=== PATIENT | male | born 1990 | race African-American/Black ===

== ENCOUNTER 2022-10-18 13:02 | Emergency (ER) | payer OTHER, SELFPAY ==
[2022-10-18 13:31] VITALS: BP 122/82; PULSE 63; RESP 16; TEMP 36.8; O2SAT 95; BMI 24.3
--- NOTE | 2022-10-18 13:32 | ED_ITS ---
HPI - General Adult General Chief complaint: Abdominal Pain <Delbert Calvert - Last Filed: 10/18/22 13:33> Stated complaint: Abd pain/Headaches/Addiction issues <Delbert Calvert - Last Filed: 10/18/22 13:33> Time Seen by Provider: 10/18/22 16:36 <Delbert Calvert - Last Filed: 10/18/22 13:33> Source: patient <JIMMY Correa - Last Filed: 10/18/22 20:22> Mode of arrival: ambulatory <JIMMY Correa - Last Filed: 10/18/22 20:22> History of Present Illness HPI narrative: 32-year-old male with no significant past medical history presenting to the ED complaining of intermittent headache and epigastric pain x4 days. Reports taking aspirin without relief. Denies headache being maximal in onset. Denies abdominal pain being worse with eating. Denies vision change/loss, nausea/vomiting, diarrhea, dysuria/hematuria, flank pain, head injury. Denies taking anticoagulation <JIMMY Correa - Last Filed: 10/18/22 20:22> Onset (ago): day(s) <JIMMY Corera - Last Filed: 10/18/22 20:22> Related Data Allergies/adverse reactions: Allergies Allergy/AdvReac Type Severity Reaction Status Date / Time shellfish derived Allergy Itching Verified 10/18/22 13:34 <Delbert Calvert - Last Filed: 10/18/22 13:33> Review of Systems Review of Systems: Constitutional: No Fever, No Chills, No Night Sweats, No Fatigue, No Malaise ENT/Mouth: No Hearing loss, No Ear Pain, No Nasal Congestion, No sore throat, No Rhinorrhea, No Swallowing Difficulty Eyes: No Eye Pain, No Swelling, No Redness, No Foreign Body, No Discharge, No Vision Changes Cardiovascular: No Chest Pain, No SOB, No Edema, No Palpitations Respiratory: No Cough, No Sputum, No Dyspnea Gastrointestinal: No Nausea, No Vomiting, No Diarrhea, No Constipation, No Abdominal pain Genitourinary: No Dysuria, No Urinary Frequency, No Hematuria, No Flank Pain, No Urinary Flow Changes, No Hesitancy Musculoskeletal: No joint pain, No Myalgias, No Joint Swelling Skin: No Skin Lesions, No rash Neuro: No Weakness, No Numbness, No Paresthesias, No Loss of Consciousness, No Dizziness, + Headache <JIMMY Correa - Last Filed: 10/18/22 20:22> Yes all other systems are reviewed and are negative <JIMMY Correa - Last Filed: 10/18/22 20:22> Constitutional: Constitutional: Reports as per HPI <JIMMY Correa - Last Filed: 10/18/22 20:22> Neurologic: Denies Abnormal speech present <JIMMY Correa - Last Filed: 10/18/22 20:22> [facility] Past Medical History Attestation statement: The following information was validated with the patient. <JIMMY Correa - Last Filed: 10/18/22 20:22> Social History Social History: Social History Advance Directives: No Advance Directives Information Provided: Yes <Delbert Calvert - Last Filed: 10/18/22 13:33> Physical Exam ED Vital Signs: Vital Signs - 24 hr 10/18/22 13:31 Temperature 98.3 F Pulse Rate 63 Respiratory Rate 16 Blood Pressure 122/82 Pulse Oximetry 95 Oxygen Delivery Method Room Air BMI result Body Mass Index 24.3 <Delbert Calvert - Last Filed: 10/18/22 13:33> Vital Signs - 24 hr 10/18/22 13:31 Temperature 98.3 F Pulse Rate 63 Respiratory Rate 16 Blood Pressure 122/82 Pulse Oximetry 95 Oxygen Delivery Method Room Air BMI result Body Mass Index 24.3 <JIMMY Correa - Last Filed: 10/18/22 20:22> Vital Signs - 24 hr 10/18/22 13:31 Temperature 98.3 F Pulse Rate 63 Respiratory Rate 16 Blood Pressure 122/82 Pulse Oximetry 95 Oxygen Delivery Method Room Air BMI result Body Mass Index 24.3 <Kehinde Ly NP - Last Filed: 10/18/22 22:02> Const General: cooperative, healthy appearing, comfortable and no acute distress <JIMMY Correa - Last Filed: 10/18/22 20:22> Orientation/consciousness: patient oriented x3 <JIMMY Correa - Last Filed: 10/18/22 20:22> Limitations: no limitations <JIMMY Correa - Last Filed: 10/18/22 20:22> HENMT Head: Yes normal to inspection and Yes atraumatic <Kerrie Mcfadden PA - Last Filed: 10/18/22 20:22> Ears: hearing grossly normal bilaterally, TM's normal bilaterally and mastoids normal <Kerrie Mcfadden PA - Last Filed: 10/18/22 20:22> General nose exam: Normal external nose present <Kerrie Mcfadden PA - Last Filed: 10/18/22 20:22> Face and sinus: Yes normal facial exam <JIMMY Correa - Last Filed: 10/18/22 20:22> Mouth: Normal oral and palatal mucosa present <Kerrie Mcfadden PA - Last Filed: 10/18/22 20:22> Throat: Yes posterior oropharynx normal <JIMMY Correa - Last Filed: 10/18/22 2 0:22> Eyes General: appearance normal, both eyes and all related structures <Kerrie Mcfadden PA - Last Filed: 10/18/22 20:22> Pupils: Equal, round and reactive pupils present <Kerrie Mcfadden PA - Last Filed: 10/18/22 20:22> EOM: EOMs intact bilaterally <Kerrie Mcfadden PA - Last Filed: 10/18/22 20:22> Neck Neck: Yes normal visual inspection, Yes no lymphadenopathy and Yes no meningeal signs <JIMMY Correa - Last Filed: 10/18/22 20:22> Resp Effort & Inspection: normal respiratory effort and no respiratory distress <Kerrie Mcfadden PA - Last Filed: 10/18/22 20:22> Auscultation: clear to auscultation bilaterally <Kerrie Mcfadden PA - Last Filed: 10/18/22 20:22> Cardio Rate: regular rate <JIMMY Correa - Last Filed: 10/18/22 20:22> Heart sounds: S1 normal heart sound present and S2 normal heart sound present <Kerrie Mcfadden PA - Last Filed: 10/18/22 20:22> GI Inspection: Yes normal to inspection <Kerrie Mcfadden PA - Last Filed: 10/18/22 20:22> Palpation (GI): Soft to palpation, nontender, no guarding and not rigid <Kerrie Mcfadden PA - Last Filed: 10/18/22 20:22> General: Yes no CVA tenderness <Kerrie Mcfadden PA - Last Filed: 10/18/22 20:22> Back/Spine/Pelvis Back: no CVA tenderness <Kerrie Mcfadden PA - Last Filed: 10/18/22 20:22> Skin Rashes: no rashes <Kerrie Mcfadden PA - Last Filed: 10/18/22 20:22> Wounds: no wounds <Kerrie Mcfadden PA - Last Filed: 10/18/22 20:22> Neuro General: patient oriented x3, gait normal, tone normal, moves all extremities, no meningeal signs, no focal motor deficits and CN's II-XI intact bilaterally <Kerrie Mcfadden PA - Last Filed: 10/18/22 20:22> Cranial nerves: Yes Equal, round and reactive pupils present <Kerrie Mcfadden PA - Last Filed: 10/18/22 20:22> Cognition (Neuro): normal cognition <Kerrie Mcfadden PA - Last Filed: 10/18/22 20:22> Speech: No Abnormal speech present <Kerrei Mcfadden PA - Last Filed: 10/18/22 20:22> Gait exam (Neuro): Normal gait present <Kerrie Mcfadden PA - Last Filed: 10/18/22 20:22> Motor exam (neuro): 5/5 motor strength present throughout and Pronator motor function not present <Kerrie Mcfadden PA - Last Filed: 10/18/22 20:22> Extrem General: Yes normal to inspection <Kerrie Mcfadden PA - Last Filed: 10/18/22 20:22> Course Course Course Narrative: -labs reassuring. Total bilirubin mildly elevated to 1.8 -2020--on re-evaluation patient reports symptomatic improvement after medications given in the ED. Patient tearful, upon further conversation reports he uses cocaine and EtOH, denies history known ETOH withdrawal, admits to i ncreasing stressors at home with , 3 children and . Reports increasing depressions/overwhelming feeling. Is interested in detox. Denies SI. >> will obtain CARE team/recovery consult -2020--ED care transferred to [facility] kehinde pending CARE team and recovery eval <JIMMY Correa - Last Filed: 10/18/22 20:22> -labs reassuring. Total bilirubin mildly elevated to 1.8 -2019--on re-evaluation patient reports symptomatic improvement after medications given in the ED. Patient tearful, upon further conversation reports he uses cocaine and EtOH, denies history known ETOH withdrawal, admits to increasing stressors at home with , 3 children and . Reports increasing depressions/overwhelming feeling. Is interested in detox. Denies SI. >> will obtain CARE team/recovery consult -2020--ED care transferred to [facility] kehinde valderrama CARE team and recovery eval Plan is for [facility] tomorrow. <Kehinde Ly NP - Last Filed: 10/18/22 22:02> Reevaluation(s) Reevaluation #1: RME- 32 year old male presents for evaluation of upper abdominal pain and headache for the last 4 days. Plan for labs, viral swab <Delbert Calvert - Last Filed: 10/18/22 13:33> Medications Administered Discontinued Medications Generic Name Dose Route Start Last Admin Trade Name Freq PRN Reason Stop Dose Admin Acetaminophen/Butalbital/Caffeine 1 tab 10/18/22 18:40 10/18/22 18:47 Butalb/Acetamin/Caff 50/325/40 Tablet PO 10/18/22 18:41 1 tab ONCE ONE Administration Al Hydroxide/Mg Hydroxide 30 ml 10/18/22 18:40 10/18/22 18:48 Magnesium Hydrox/Alum Hydrox 30 Ml Oral.Susp PO 10/18/22 18:41 30 ml ONCE ONE Administration Famotidine 20 mg 10/18/22 18:40 10/18/22 18:48 Famotidine 20 Mg Tablet PO 10/18/22 18:41 20 mg ONCE ONE Administration Ketorolac Tromethamine 30 mg 10/18/22 19:43 10/18/22 19:55 Ketorolac Tromethamine 30 Mg/Ml Vial IM 10/18/22 19:44 30 mg ONCE ONE Administration Metoclopramide HCl 10 mg 10/18/22 19:43 10/18/22 19:55 Metoclopramide Hcl 10 Mg Tablet PO 10/18/22 19:44 10 mg ONCE ONE Administration Sumatriptan Succinate 25 mg 10/18/22 19:43 10/18/22 19:55 Sumatriptan Succinate 25 Mg Tablet PO 10/18/22 19:44 25 mg ONCE ONE Administration <Delbert Calvert - Last Filed: 10/18/22 13:33> Medications Administered Discontinued Medications Generic Name Dose Route Start Last Admin Trade Name Freq PRN Reason Stop Dose Admin Acetaminophen/Butalbital/Caffeine 1 tab 10/18/22 18:40 10/18/22 18:47 Butalb/Acetamin/Caff 50/325/40 Tablet PO 10/18/22 18:41 1 tab ONCE ONE Administration Al Hydroxide/Mg Hydroxide 30 ml 10/18/22 18:40 10/18/22 18:48 Magnesium Hydrox/Alum Hydrox 30 Ml Oral.Susp PO 10/18/22 18:41 30 ml ONCE ONE Administration Famotidine 20 mg 10/18/22 18:40 10/18/22 18:48 Famotidine 20 Mg Tablet PO 10/18/22 18:41 20 mg ONCE ONE Administration Ketorolac Tromethamine 30 mg 10/18/22 19:43 10/18/22 19:55 Ketorolac Tromethamine 30 Mg/Ml Vial IM 10/18/22 19:44 30 mg ONCE ONE Administration Metoclopramide HCl 10 mg 10/18/22 19:43 10/18/22 19:55 Metoclopramide Hcl 10 Mg Tablet PO 10/18/22 19:44 10 mg ONCE ONE Administration Sumatriptan Succinate 25 mg 10/18/22 19:43 10/18/22 19:55 Sumatriptan Succinate 25 Mg Tablet PO 10/18/22 19:44 25 mg ONCE ONE Administration <JIMMY Correa - Last Filed: 10/18/22 20:22> Medications Administered Discontinued Medications Generic Name Dose Route Start Last Admin Trade Name Freq PRN Reason Stop Dose Admin Acetaminophen/Butalbital/Caffeine 1 tab 10/18/22 18:40 10/18/22 18:47 Butalb/Acetamin/Caff 50/325/40 Tablet PO 10/18/22 18:41 1 tab ONCE ONE Administration Al Hydroxide/Mg Hydroxide 30 ml 10/18/22 18:40 10/18/22 18:48 Magnesium Hydrox/Alum Hydrox 30 Ml Oral.Susp PO 10/18/22 18:41 30 ml ONCE ONE Administration Famotidine 20 mg 10/18/22 18:40 10/18/22 18:48 Famotidine 20 Mg Tablet PO 10/18/22 18:41 20 mg ONCE ONE Administration Ketorolac Tromethamine 30 mg 10/18/22 19:43 10/18/22 19:55 Ketorolac Tromethamine 30 Mg/Ml Vial IM 10/18/22 19:44 30 mg ONCE ONE Administration Metoclopramide HCl 10 mg 10/18/22 19:43 10/18/22 19:55 Metoclopramide Hcl 10 Mg Tablet PO 10/18/22 19:44 10 mg ONCE ONE Administration Sumatriptan Succinate 25 mg 10/18/22 19:43 10/18/22 19:55 Sumatriptan Succinate 25 Mg Tablet PO 10/18/22 19:44 25 mg ONCE ONE Administration <Kehinde Ly NP - Last Filed: 10/18/22 22:02> Medical Decision Making Medical Decision Making MDM Narrative: 32-year-old male with no significant past medical history presenting to the ED complaining of intermittent headache and epigastric pain x4 days. On exam vital signs stable, NAD, nontoxic appearing, no focal neuro deficits, ab domen soft nontender, no CVAT. Concern for viral illness vs migraine headache vs GERD/gastritis. Low suspicion for cholecystitis/pancreatitis, appendicitis/diverticulitis, ICH/SAH, or meningitis Plan: Labs, COVID/flu/RSV testing, PO Fioricet, Pepcid, Maalox Please refer to course for remaining clinical decision making, interpretation of labs/imaging results, and discussions with consultants and/or family members. <JIMMY Correa - Last Filed: 10/18/22 20:22> Differential Diagnosis Differential Diagnoses: The differential diagnosis associated with the presentation includes <JIMMY Correa - Last Filed: 10/18/22 20:22> As above <JIMMY Correa - Last Filed: 10/18/22 20:22> Admission/Observation Consideration of admission/observation: Escalation of care including admission/observation considered <JIMMY Garcia - Last Filed: 10/18/22 20:22> Lab Data MDM Lab Attestation statement: I reviewed the patient's lab results. <JIMMY Correa - Last Filed: 10/18/22 20:22> Result Diagrams: 10/18/22 13:46 10/18/22 13:46 <Delbert Calvert - Last Filed: 10/18/22 13:33> Labs: Lab Results 10/18/22 10/18/22 10/18/22 Range/Units 13:46 13:46 13:46 WBC 8.6 (4.8-10.8) X10*3/uL RBC 4.68 (4.60-5.80) X10*6/uL Hgb 14.8 (14.0-18.0) g/dl Hct 43.3 (42.0-52.0) % MCV 92.5 (80.0-98.0) fL MCH 31.6 (27.0-33.0) pg MCHC 34.2 (31.0-36.0) g/dl RDW 12.2 (11.0-16.0) % Plt Count 255 (160-400) X10*3/uL MPV 9.8 (9.4-12.4) fL Immature Gran % (Auto) 0.2 (0.0-0.4) % Neut % (Auto) 43.1 L (45-73) % Lymph % (Auto) 44.9 H (20-40) % Hickman % (Auto) 9.9 (2-11) % Eos % (Auto) 1.3 (0-4) % Baso % (Auto) 0.6 (0-2) % Lymph # (Auto) 3.8 (1.2-4.9) X10*3/uL Hickman # (Auto) 0.9 (0.1-1.2) X10*3/uL Eos # (Auto) 0.1 (0.0-0.4) X10*3/uL Baso # (Auto) 0.1 (0.0-0.2) X10*3/uL Abs Immat Gran (auto) 0.02 (0.00-0.03) X10*3/uL Absolute Neuts (auto) 3.7 (2.0-8.3) x10*3/uL Absolute Nucleated RBC 0.000 (0.0-0.012) X10*3/uL Nucleated RBC % (auto) 0.0 (0.0-0.2) /100WBC Sodium 143 (135-145) mmol/L Potassium 4.1 (3.3-5.1) mmol/L Chloride 105 (96-108) mmol/L Carbon Dioxide 29 (22-29) mmol/L Anion Gap 13 (12-20) BUN 11 (9-16) mg/dL Creatinine 1.06 (0.5-1.4) mg/dL Estim Creat Clear Calc 100.9 Estimated GFR > 60 Random Glucose 99 (60-115) mg/dL Calcium 9.3 (8.4-10.2) mg/dL Total Bilirubin 1.8 H (0.0-1.0) mg/dL AST 35 (5-37) U/L ALT 35 (0-40) U/L Alkaline Phosphatase 63 (39-117) U/L Total Protein 7.3 (6.5-8.0) g/dL Albumin 4.5 (3.5-5.0) g/dL Lipase 16 (8-78) U/L Urine Opiates Screen (Not Detect) Urine Fentanyl Screen (Not Detect) Ur Barbiturates Screen (Not Detect) Ur Phencyclidine Scrn (Not Detect) Ur Amphetamines Screen (Not Detect) U Benzodiazepines Scrn (Not Detect) Urine Cocaine Screen (Not Detect) U Marijuana (THC) Screen (Not Detect) Influenza Type A (PCR) NEGATIVE (Negative) Influenza Type B (PCR) NEGATIVE (Negative) RSV RNA Qual (PCR) NEGATIVE (Negative) SARS-CoV-2 RNA (RT-PCR) NEGATIVE (Negative) 10/18/22 Range/Units 20:49 WBC (4.8-10.8) X10*3/uL RBC (4.60-5.80) X10*6/uL Hgb (14.0-18.0) g/dl Hct (42.0-52.0) % MCV (80.0-98.0) fL MCH (27.0-33.0) pg MCHC (31.0-36.0) g/dl RDW (11.0-16.0) % Plt Count (160-400) X10*3/uL MPV (9.4-12.4) fL Immature Gran % (Auto) (0.0-0.4) % Neut % (Auto) (45-73) % Lymph % (Auto) (20-40) % Hickman % (Auto) (2-11) % Eos % (Auto) (0-4) % Baso % (Auto) (0-2) % Lymph # (Auto) (1.2-4.9) X10*3/uL Hickman # (Auto) (0.1-1.2) X10*3/uL Eos # (Auto) (0.0-0.4) X10*3/uL Baso # (Auto) (0.0-0.2) X10*3/uL Abs Immat Gran (auto) (0.00-0.03) X10*3/uL Absolute Neuts (auto) (2.0-8.3) x10*3/uL Absolute Nucleated RBC (0.0-0.012) X10*3/uL Nucleated RBC % (auto) (0.0-0.2) /100WBC Sodium (135-145) mmol/L Potassium (3.3-5.1) mmol/L Chloride (96-108) mmol/L Carbon Dioxide (22-29) mmol/L Anion Gap (12-20) BUN (9-16) mg/dL Creatinine (0.5-1.4) mg/dL Estim Creat Clear Calc Estimated GFR Random Glucose (60-115) mg/dL Calcium (8.4-10.2) mg/dL Total Bilirubin (0.0-1.0) mg/dL AST (5-37) U/L ALT (0-40) U/L Alkaline Phosphatase (39-117) U/L Total Protein (6.5-8.0) g/dL Albumin (3.5-5.0) g/dL Lipase (8-78) U/L Urine Opiates Screen Not Detected (Not Detect) Urine Fentanyl Screen Not Detected (Not Detect) Ur Barbiturates Screen Not Detected (Not Detect) Ur Phencyclidine Scrn Not Detected (Not Detect) Ur Amphetamines Screen Not Detected (Not Detect) U Benzodiazepines Scrn Not Detected (Not Detect) Urine Cocaine Screen POSITIVE H (Not Detect) U Marijuana (THC) Screen POSITIVE H (Not Detect) Influenza Type A (PCR) (Negative) Influenza Type B (PCR) (Negative) RSV RNA Qual (PCR) (Negative) SARS-CoV-2 RNA (RT-PCR) (Negative) <Delbert Calvert - Last Filed: 10/18/22 13:33> Lab Results 10/18/22 10/18/22 10/18/22 Range/Units 13:46 13:46 13:46 WBC 8.6 (4.8-10.8) X10*3/uL RBC 4.68 (4.60-5.80) X10*6/uL Hgb 14.8 (14.0-18.0) g/dl Hct 43.3 (42.0-52.0) % MCV 92.5 (80.0-98.0) fL MCH 31.6 (27.0-33.0) pg MCHC 34.2 (31.0-36.0) g/dl RDW 12.2 (11.0-16.0) % Plt Count 255 (160-400) X10*3/uL MPV 9.8 (9.4-12.4) fL Immature Gran % (Auto) 0.2 (0.0-0.4) % Neut % (Auto) 43.1 L (45-73) % Lymph % (Auto) 44.9 H (20-40) % Hickman % (Auto) 9.9 (2-11) % Eos % (Auto) 1.3 (0-4) % Baso % (Auto) 0.6 (0-2) % Lymph # (Auto) 3.8 (1.2-4.9) X10*3/uL Hickman # (Auto) 0.9 (0.1-1.2) X10*3/uL Eos # (Auto) 0.1 (0.0-0.4) X10*3/uL Baso # (Auto) 0.1 (0.0-0.2) X10*3/uL Abs Immat Gran (auto) 0.02 (0.00-0.03) X10*3/uL Absolute Neuts (auto) 3.7 (2.0-8.3) x10*3/uL Absolute Nucleated RBC 0.000 (0.0-0.012) X10*3/uL Nucleated RBC % (auto) 0.0 (0.0-0.2) /100WBC Sodium 143 (135-145) mmol/L Potassium 4.1 (3.3-5.1) mmol/L Chloride 105 (96-108) mmol/L Carbon Dioxide 29 (22-29) mmol/L Anion Gap 13 (12-20) BUN 11 (9-16) mg/dL Creatinine 1.06 (0.5-1.4) mg/dL Estim Creat Clear Calc 100.9 Estimated GFR > 60 Random Glucose 99 (60-115) mg/dL Calcium 9.3 (8.4-10.2) mg/dL Total Bilirubin 1.8 H (0.0-1.0) mg/dL AST 35 (5-37) U/L ALT 35 (0-40) U/L Alkaline Phosphatase 63 (39-117) U/L Total Protein 7.3 (6.5-8.0) g/dL Albumin 4.5 (3.5-5.0) g/dL Lipase 16 (8-78) U/L Urine Opiates Screen (Not Detect) Urine Fentanyl Screen (Not Detect) Ur Barbiturates Screen (Not Detect) Ur Phencyclidine Scrn (Not Detect) Ur Amphetamines Screen (Not Detect) U Benzodiazepines Scrn (Not Detect) Urine Cocaine Screen (Not Detect) U Marijuana (THC) Screen (Not Detect) Influenza Type A (PCR) NEGATIVE (Negative) Influenza Type B (PCR) NEGATIVE (Negative) RSV RNA Qual (PCR) NEGATIVE (Negative) SARS-CoV-2 RNA (RT-PCR) NEGATIVE (Negative) 10/18/22 Range/Units 20:49 WBC (4.8-10.8) X10*3/uL RBC (4.60-5.80) X10*6/uL Hgb (14.0-18.0) g/dl Hct (42.0-52.0) % MCV (80.0-98.0) fL MCH (27.0-33.0) pg MCHC (31.0-36.0) g/dl RDW (11.0-16.0) % Plt Count (160-400) X10*3/uL MPV (9.4-12.4) fL Immature Gran % (Auto) (0.0-0.4) % Neut % (Auto) (45-73) % Lymph % (Auto) (20-40) % Hickman % (Auto) (2-11) % Eos % (Auto) (0-4) % Baso % (Auto) (0-2) % Lymph # (Auto) (1.2-4.9) X10*3/uL Hickman # (Auto) (0.1-1.2) X10*3/uL Eos # (Auto) (0.0-0.4) X10*3/uL Baso # (Auto) (0.0-0.2) X10*3/uL Abs Immat Gran (auto) (0.00-0.03) X10*3/uL Absolute Neuts (auto) (2.0-8.3) x10*3/uL Absolute Nucleated RBC (0.0-0.012) X10*3/uL Nucleated RBC % (auto) (0.0-0.2) /100WBC Sodium (135-145) mmol/L Potassium (3.3-5.1) mmol/L Chloride (96-108) mmol/L Carbon Dioxide (22-29) mmol/L Anion Gap (12-20) BUN (9-16) mg/dL Creatinine (0.5-1.4) mg/dL Estim Creat Clear Calc Estimated GFR Random Glucose (60-115) mg/dL Calcium (8.4-10.2) mg/dL Total Bilirubin (0.0-1.0) mg/dL AST (5-37) U/L ALT (0-40) U/L Alkaline Phosphatase (39-117) U/L Total Protein (6.5-8.0) g/dL Albumin (3.5-5.0) g/dL Lipase (8-78) U/L Urine Opiates Screen Not Detected (Not Detect) Urine Fentanyl Screen Not Detected (Not Detect) Ur Barbiturates Screen Not Detected (Not Detect) Ur Phencyclidine Scrn Not Detected (Not Detect) Ur Amphetamines Screen Not Detected (Not Detect) U Benzodiazepines Scrn Not Detected (Not Detect) Urine Cocaine Screen POSITIVE H (Not Detect) U Marijuana (THC) Screen POSITIVE H (Not Detect) Influenza Type A (PCR) (Negative) Influenza Type B (PCR) (Negative) RSV RNA Qual (PCR) (Negative) SARS-CoV-2 RNA (RT-PCR) (Negative) <JIMMY Correa - Last Filed: 10/18/22 20:22> Lab Results 10/18/22 10/18/22 10/18/22 Range/Units 13:46 13:46 13:46 WBC 8.6 (4.8-10.8) X10*3/uL RBC 4.68 (4.60-5.80) X10*6/uL Hgb 14.8 (14.0-18.0) g/dl Hct 43.3 (42.0-52.0) % MCV 92.5 (80.0-98.0) fL MCH 31.6 (27.0-33.0) pg MCHC 34.2 (31.0-36.0) g/dl RDW 12.2 (11.0-16.0) % Plt Count 255 (160-400) X10*3/uL MPV 9.8 (9.4-12.4) fL Immature Gran % (Auto) 0.2 (0.0-0.4) % Neut % (Auto) 43.1 L (45-73) % Lymph % (Auto) 44.9 H (20-40) % Hickman % (Auto) 9.9 (2-11) % Eos % (Auto) 1.3 (0-4) % Baso % (Auto) 0.6 (0-2) % Lymph # (Auto) 3.8 (1.2-4.9) X10*3/uL Hickman # (Auto) 0.9 (0.1-1.2) X10*3/uL Eos # (Auto) 0.1 (0.0-0.4) X10*3/uL Baso # (Auto) 0.1 (0.0-0.2) X10*3/uL Abs Immat Gran (auto) 0.02 (0.00-0.03) X10*3/uL Absolute Neuts (auto) 3.7 (2.0-8.3) x10*3/uL Absolute Nucleated RBC 0.000 (0.0-0.012) X10*3/uL Nucleated RBC % (auto) 0.0 (0.0-0.2) /100WBC Sodium 143 (135-145) mmol/L Potassium 4.1 (3.3-5.1) mmol/L Chloride 105 (96-108) mmol/L Carbon Dioxide 29 (22-29) mmol/L Anion Gap 13 (12-20) BUN 11 (9-16) mg/dL Creatinine 1.06 (0.5-1.4) mg/dL Estim Creat Clear Calc 100.9 Estimated GFR > 60 Random Glucose 99 (60-115) mg/dL Calcium 9.3 (8.4-10.2) mg/dL Total Bilirubin 1.8 H (0.0-1.0) mg/dL AST 35 (5-37) U/L ALT 35 (0-40) U/L Alkaline Phosphatase 63 (39-117) U/L Total Protein 7.3 (6.5-8.0) g/dL Albumin 4.5 (3.5-5.0) g/dL Lipase 16 (8-78) U/L Urine Opiates Screen (Not Detect) Urine Fentanyl Screen (Not Detect) Ur Barbiturates Screen (Not Detect) Ur Phencyclidine Scrn (Not Detect) Ur Amphetamines Screen (Not Detect) U Benzodiazepines Scrn (Not Detect) Urine Cocaine Screen (Not Detect) U Marijuana (THC) Screen (Not Detect) Influenza Type A (PCR) NEGATIVE (Negative) Influenza Type B (PCR) NEGATIVE (Negative) RSV RNA Qual (PCR) NEGATIVE (Negative) SARS-CoV-2 RNA (RT-PCR) NEGATIVE (Negative) 10/18/22 Range/Units 20:49 WBC (4.8-10.8) X10*3/uL RBC (4.60-5.80) X10*6/uL Hgb (14.0-18.0) g/dl Hct (42.0-52.0) % MCV (80.0-98.0) fL MCH (27.0-33.0) pg MCHC (31.0-36.0) g/dl RDW (11.0-16.0) % Plt Count (160-400) X10*3/uL MPV (9.4-12.4) fL Immature Gran % (Auto) (0.0-0.4) % Neut % (Auto) (45-73) % Lymph % (Auto) (20-40) % Hickman % (Auto) (2-11) % Eos % (Auto) (0-4) % Baso % (Auto) (0-2) % Lymph # (Auto) (1.2-4.9) X10*3/uL Hickman # (Auto) (0.1-1.2) X10*3/uL Eos # (Auto) (0.0-0.4) X10*3/uL Baso # (Auto) (0.0-0.2) X10*3/uL Abs Immat Gran (auto) (0.00-0.03) X10*3/uL Absolute Neuts (auto) (2.0-8.3) x10*3/uL Absolute Nucleated RBC (0.0-0.012) X10*3/uL Nucleated RBC % (auto) (0.0-0.2) /100WBC Sodium (135-145) mmol/L Potassium (3.3-5.1) mmol/L Chloride (96-108) mmol/L Carbon Dioxide (22-29) mmol/L Anion Gap (12-20) BUN (9-16) mg/dL Creatinine (0.5-1.4) mg/dL Estim Creat Clear Calc Estimated GFR Random Glucose (60-115) mg/dL Calcium (8.4-10.2) mg/dL Total Bilirubin (0.0-1.0) mg/dL AST (5-37) U/L ALT (0-40) U/L Alkaline Phosphatase (39-117) U/L Total Protein (6.5-8.0) g/dL Albumin (3.5-5.0) g/dL Lipase (8-78) U/L Urine Opiates Screen Not Detected (Not Detect) Urine Fentanyl Screen Not Detected (Not Detect) Ur Barbiturates Screen Not Detected (Not Detect) Ur Phencyclidine Scrn Not Detected (Not Detect) Ur Amphetamines Screen Not Detected (Not Detect) U Benzodiazepines Scrn Not Detected (Not Detect) Urine Cocaine Screen POSITIVE H (Not Detect) U Marijuana (THC) Screen POSITIVE H (Not Detect) Influenza Type A (PCR) (Negative) Influenza Type B (PCR) (Negative) RSV RNA Qual (PCR) (Negative) SARS-CoV-2 RNA (RT-PCR) (Negative) <Kehinde Ly NP - Last Filed: 10/18/22 22:02> Radiology Impression Discussion of test interpretation with radiology: I have reviewed the radiologist's reading. <JIMMY Correa - Last Filed: 10/18/22 20:22> External Record Review External record reviewed: Inpatient record, Office record, Outpatient record, Prior outpatient labs, Prior outpatient radiology, Primary care record and Outside ED record <JIMMY Correa - Last Filed: 10/18/22 20:22> Discharge Plan Discharge Clinical Impression: Headache, Abdominal pain, Depressed, Substance abuse <Delbert Calvert - Last Filed: 10/18/22 13:33> Patient Disposition: Home, Self-Care <Delbert Calvert - Last Filed: 10/18/22 13:33> Instructions: Acute Headache (ED), Polysubstance Abuse (ED) <Delbert Calvert - Last Filed: 10/18/22 13:33> Additional Instructions: Please present to detox. Thank you for seeking assistance. Thank you for choosing this emergency department for evaluation. Please follow-up with primary care physician as needed. Return to the emergency department for any new, concerning, or worsening symptoms. <Delbert Calvert - Last Filed: 10/18/22 13:33>
[2022-10-18 13:52] LABS: Basophils Absolute Auto 0.1 X10*3/uL (0.0-0.2); Basophils Percent Auto 0.6 % (0-2); Eosinophils Absolute Auto 0.1 X10*3/uL (0.0-0.4); Eosinophils Percent Auto 1.3 % (0-4); Hematocrit 43.3 % (42.0-52.0); Hemoglobin 14.8 g/dl (14.0-18.0); Imm Gran Abs Auto 0.02 X10*3/uL (0.00-0.03); Imm Gran Pct Auto 0.2 % (0.0-0.4); Lymphocytes Absolute Auto 3.8 X10*3/uL (1.2-4.9); Lymphocytes Percent Auto 44.9 % (20-40); MANUAL DIFF FLAG NO; Mean Corpuscular HGB Conc 34.2 g/dl (31.0-36.0); Mean Corpuscular Hemoglobin 31.6 pg (27.0-33.0); Mean Corpuscular Volume 92.5 fL (80.0-98.0); Mean Platelet Volume 9.8 fL (9.4-12.4); Monocytes Absolute Auto 0.9 X10*3/uL (0.1-1.2); Monocytes Percent Auto 9.9 % (2-11); Neutrophils Absolute Auto 3.7 x10*3/uL (2.0-8.3); Neutrophils Percent Auto 43.1 % (45-73); Platelet Count 255 X10*3/uL (160-400); Red Blood Count 4.68 X10*6/uL (4.60-5.80); Red Cell Distribution Width 12.2 % (11.0-16.0); White Blood Count 8.6 X10*3/uL (4.8-10.8)
[2022-10-18 14:05] LABS: Alanine Aminotransferase 35 U/L (0-40); Albumin Level 4.5 g/dL (3.5-5.0); Alkaline Phosphatase 63 U/L (39-117); Anion Gap 13 (12-20); Aspartate Amino Transferase 35 U/L (5-37); Bilirubin Total 1.8 mg/dL (0.0-1.0); Blood Urea Nitrogen 11 mg/dL (9-16); Calcium 9.3 mg/dL (8.4-10.2); Carbon Dioxide 29 mmol/L (22-29); Chloride 105 mmol/L (96-108); Creatinine Clr Calc Pharmacy 100.9; Estimated Glomerular Filt Rate > 60; Glucose Random 99 mg/dL (60-115); Lipase 16 U/L (8-78); Potassium 4.1 mmol/L (3.3-5.1); Sodium 143 mmol/L (135-145); Total Protein 7.3 g/dL (6.5-8.0)
[2022-10-18 14:32] LABS: Influenza A PCR NEGATIVE (Negative); Influenza B PCR NEGATIVE (Negative); Resp Syncy Virus RNA Qual PCR NEGATIVE (Negative); SARS COV2 PCR INHOUSE NEGATIVE (Negative)
[2022-10-18] MEDS: Butalb/Acetamin/Caff 50/325/40 TABLET 1 TAB PO (18:47)
[2022-10-18] MEDS: Famotidine 20 MG TABLET PO (18:48)
[2022-10-18] MEDS: Magnesium Hydrox/Alum Hydrox 30 ML ORAL.SUSP PO (18:48)
[2022-10-18] MEDS: SUMAtriptan succinate 25 MG TABLET PO (19:55)
[2022-10-18] MEDS: Metoclopramide HCl 10 MG TABLET PO (19:55)
[2022-10-18] MEDS: Ketorolac Tromethamine 30 MG/ML VIAL IM (19:55)
--- NOTE | 2022-10-18 20:59 | PC.NURSE ---
Patient alert and oriented x 3. Patient was crying when I went in medications given. Kerrie went in to see if he wanted to go home he was crying and asked to see care team and recovery. Drug screen done.
--- NOTE | 2022-10-18 21:01 | MHC.RECOVSUP ---
? Reason for consult:Both o? Current location:[facility]? o? Identified substance use concern:? -? Seeking ATS (detox) ? Intervention: o? ATS bed search started/completed/in process o? Community resources provided ? Plan: ? Additional information:RC met with pt, discussed ATS treatment, RC called multiple facilities. No male beds available at this time, [facility] does take walk ins, RC will inform pt and provide him with recovery resources.
[2022-10-18 21:13] LABS: Amphetamine Screen Urine Not Detected (Not Detect); Barbiturates, Urine Not Detected (Not Detect); Benzodiazepines Screen Urine Not Detected (Not Detect); Cannabinoid Screen Urine POSITIVE (Not Detect); Cocaine Screen Urine POSITIVE (Not Detect); Fentanyl, urine Not Detected (Not Detect); Opiate Screen Urine Not Detected (Not Detect); Phencyclidine Screen Urine Not Detected (Not Detect)
== END 2022-10-18 22:12 | disposition home or self-care (01) ==
PROVIDERS: Physician Assistant; Emergency Provider Emergency Medicine
DX: R51.9 Headache, unspecified (principal); R10.9 Unspecified abdominal pain; F32.A Depression, unspecified; F19.10 Other psychoactive substance abuse, uncomplicated; F10.90 Alcohol use, unspecified, uncomplicated; Z20.822 Contact with and (suspected) exposure to COVID-19; Z20.828 Contact with and (suspected) exposure to other viral communicable diseases
CPT/HCPCS: 0241U; 80053; 80307; 83690; 85025; 96372; 99283; 99284; J1885

== ENCOUNTER 2023-08-28 03:27 | Emergency (ER) | payer OTHER, SELFPAY ==
[2023-08-28 03:44] VITALS: BP 129/89; PULSE 105; RESP 18; TEMP 36.7; O2SAT 98; BMI 26.3
[2023-08-28 04:08] LABS: COVID-19 Test Negative (Negative); IDNOW Serial# 58CA691E; IDNOW Serial# 9DB6401D; Influenza A Negative (Negative); Influenza B2 Negative (Negative)
--- NOTE | 2023-08-28 04:38 | ED_ITS ---
HPI - General Adult General Chief complaint: General Medical Stated complaint: ear pain, loss of hearing? Time Seen by Provider: 08/28/23 04:30 Source: patient Mode of arrival: ambulatory Limitations: no limitations History of Present Illness HPI narrative: 33 yo male with prior substance abuse who presents with c/o bilateral ear pain and hearing loss for a week. He also noted a non painful lesion on his penis he just noticed it today. No drainage, no issues urinating. MD complaint: ear pain, penile lesion Onset (ago): week(s) (1) Location: head and genitals Radiation: non-radiation Severity: moderate Quality: aching Pain Consistency: constant Relieving factors: none Exacerbating factors: movement Associated symptoms: denies other symptoms Treatments prior to arrival: none Related Data Previous Rx's Medication Instructions Recorded amoxicillin 875 mg-potassium 1 tab PO BID #14 tabs 08/28/23 clavulanate 125 mg tablet ibuprofen 600 mg tablet 600 mg PO Q6H PRN pain #30 tabs 08/28/23 ofloxacin 0.3 % ear drops 10 drp otic (ear) left DAILY 7 08/28/23 days #5 mL Allergies Allergy/AdvReac Type Severity Reaction Status Date / Time shellfish derived Allergy Itching Verified 08/28/23 04:40 Review of Systems Review of Systems: Constitutional : No Fever, No Chills, No Fatigue ENT/Mouth : No sore throat, No Rhinorrhea, pos ear pain, pos hearing loss Eyes: No Eye Pain, No Swelling, No Redness Cardiovascular : No Chest Pain, No SOB, No Dyspnea on Exertion Respiratory : No Cough, No Sputum Gastrointestinal : No Nausea, No Vomiting, No Diarrhea, No abdominal Pain Genitourinary : No Dysuria, No Urinary Frequency, No Hematuria, pos lesion on penis Musculoskeletal : No joint pain, No Myalgias, No Joint Swelling Skin : No Skin Lesions, No rash Neuro : No Weakness, No Numbness, No Dizziness, no Headache Psych : No Anxiety/Panic, No Depression All other systems reviewed and are negative [facility] Past Medical History Attestation statement: The following information was validated with the patient. Source: old records reviewed Medical History (Updated 08/28/23 @ 04:46 by Sarah Mcelroy DO) No pertinent past medical history Social History Social History (Updated 08/28/23 @ 04:46 by Sarah Mcelroy DO) Patient Tobacco Use Status: Tobacco use Unknown Physical Exam ED Vital Signs: Vital Signs - 24 hr 08/28/23 03:44 Temperature 98.1 F Pulse Rate 105 H Respiratory Rate 18 Blood Pressure 129/89 Pulse Oximetry 98 Oxygen Delivery Method Room Air BMI result Body Mass Index 26.3 Appearance: Alert. Oriented X3. No acute distress. Eyes: Pupils equal, round and reactive to light. ENT: Pharynx normal. no mastoid ttp - bilateral bulging TM with yellow effusion and red TM no perforation, normal external pinna bilaterally, L ear canal is swollen mildly with erythema and ttp Neck: Normal inspection. Neck supple. CVS: Normal heart rate and rhythm. Pulses normal. Respiratory: No respiratory distress. Breath sounds normal. Abdomen: Soft and nontender. : on shaft of penis small flat white lesion nontender, on glans of penis there is a non tender shallow ulcer that is white/yellow has no drainage from penis Skin: Skin warm and dry. Normal skin color. Normal skin turgor. Extremities: No lower extremity edema. No calf ttp Neuro: Oriented X 3. No motor deficit. No sensory deficit. Medical Decision Making Medical Decision Making [facility] Narrative: 33 yo male with PMH of prior substance use here with 2 complaints 1. bilateral ear pain at this time AOM in both ears and otitis externa L ear - augmentin and ear drops no signs of mastoiditis he is not toxic appearing. 2. penile lesion that is nontender ulcer will send off syphillis and pre-emptively treat for chancroid with ceftriaxone and azithromycin. Differential Diagnosis Differential Diagnoses: The differential diagnosis associated with the presentation includes otitis externa, AOM, syphillis, chancroid doubt HSV nontender Admission/Observation Consideration of admission/observation: Escalation of care including admission/observation considered not toxic can be managed as outpatient no signs of deeper space infection Lab Data [facility] Lab Attestation statement: I reviewed the patient's lab results. Labs: Lab Results 08/28/23 Range/Units 03:44 COVID-19 (REBEKAH) Negative (Negative) COVID-19 Clin Com See Note Influenza Type A (ROLY) Negative (Negative) Influenza Type B (ROLY) Negative (Negative) Influenza A & B Note See Note External Record Review External record reviewed: Inpatient record Prescription Management I considered prescription management with: Antibiotic and Other Discharge Plan Discharge Clinical Impression: Penile ulcer Otitis media Qualifiers: Otitis media type: suppurative Chronicity: acute Laterality: bilateral Recurrence: non-recurrent Spontaneous tympanic membrane rupture: without spontaneous rupture Qualified Code(s): H66.003 - Acute suppurative otitis media without spontaneous rupture of ear drum, bilateral Otitis externa Qualifiers: Otitis externa type: diffuse Chronicity: acute Laterality: left Qualified Code(s): H60.312 - Diffuse otitis externa, left ear Patient Disposition: Home, Self-Care Instructions: Sexually Transmitted Diseases (ED), Safe Sex Practices (ED), Ear Infection (ED) Additional Instructions: complete all antibiotics. you were treated in the ED for presumed chancroid - we did send off a test for syphillis if positive we will call you. return for worsening swelling or rash/drainage from the penis. your ears should improve in 24 hours. take tylenol and motrin as needed for pain. return for severe headaches, drainage, or no improvement. follow up with your doctor if not better in 3 days use a condom and no sex for 1 week and until results are back Prescriptions: New ibuprofen 600 mg tablet 600 mg PO Q6H PRN (Reason: pain) Qty: 30 0RF amoxicillin-pot clavulanate 875-125 mg tablet 1 tab PO BID Qty: 14 0RF ofloxacin 0.3 % drops 10 drp otic (ear) left DAILY 7 Days Qty: 5 0RF Stand Alone Forms: Work/School Release
[2023-08-28] MEDS: cefTRIAXone sodium 500 MG, Lidocaine HCl 1 % MPF 1 ML IM (04:58)
[2023-08-28] MEDS: Ondansetron ODT 4 MG TAB.RAPDIS TRANSLINGU (04:59)
[2023-08-28] MEDS: Acetaminophen 325 MG TABLET 975 MG PO (04:59)
[2023-08-28] MEDS: Azithromycin 500 MG TABLET 1000 MG PO (05:00)
[2023-08-28] MEDS: Ibuprofen 600 MG TABLET PO (05:00)
[2023-08-28 06:24] LABS: Syphilis Screen Reactive (Nonreactive)
[2023-09-03 11:45] LABS: T.Pallidum Particle Agg Test Reactive (Nonreactive)
== END 2023-08-28 05:05 | disposition home or self-care (01) ==
LOC: HO.ED 04:54
PROVIDERS: Emergency Provider Emergency Medicine
DX: N48.5 Ulcer of penis (principal); A53.9 Syphilis, unspecified; H60.92 Unspecified otitis externa, left ear; Z11.52 Encounter for screening for COVID-19
CPT/HCPCS: 36415; 86592; 86780; 87502; 87635; 96372; 99284; J0696

== ENCOUNTER 2024-09-06 21:00 | Emergency (ER) | payer SELFPAY ==
--- NOTE | 2024-09-06 | ECG_ITS ---
Test Reason : CHEST PAIN Blood Pressure : */* mmHG Vent. Rate : 92 BPM Atrial Rate : 92 BPM P-R Int : 140 ms QRS Dur : 92 ms QT Int : 340 ms P-R-T Axes : 72 100 64 degrees QTcB Int : 420 ms Normal sinus rhythm Rightward axis Borderline ECG No previous ECGs available Referred By: Generic ED Physician Electronically Signed By: VIRIDIANA CLINE MD
--- NOTE | ~2024-09-06 | XR_ITS ---
CLINICAL HISTORY: shortness of breath 2 view chest x-ray Comparison: None Findings: The lungs are clear. Normal size heart. No acute fracture. IMPRESSION: 1. No acute findings. This document has been electronically signed by: Nash Samayoa MD on 09/06/2024 22:39:57
[2024-09-06 21:04] VITALS: BP 107/62; PULSE 99; RESP 20; TEMP 36.8; O2SAT 98; BMI 26.6
[2024-09-06 22:19] LABS: Hematocrit 45.2 % (42.0-52.0); Hemoglobin 16.1 g/dl (14.0-18.0); Mean Corpuscular HGB Conc 35.6 g/dl (31.0-36.0); Mean Corpuscular Hemoglobin 32.9 pg (27.0-33.0); Mean Corpuscular Volume 92.2 fL (80.0-98.0); Mean Platelet Volume 10.1 fL (9.4-12.4); Platelet Count 246 X10*3/uL (160-400); Red Cell Distribution Width 11.8 % (11.0-16.0); White Blood Count 7.7 X10*3/uL (4.8-10.8)
[2024-09-06 22:33] LABS: Ethanol 150 mg/dL
[2024-09-06 22:36] LABS: Alanine Aminotransferase 21 U/L (0-40); Albumin Level 4.4 g/dL (3.5-5.0); Alkaline Phosphatase 60 U/L (39-117); Anion Gap 16 (12-20); Aspartate Amino Transferase 28 U/L (5-37); Bilirubin Total 0.5 mg/dL (0.0-1.0); Blood Urea Nitrogen 14 mg/dL (9-16); Calcium 8.8 mg/dL (8.4-10.2); Carbon Dioxide 18 mmol/L (22-29); Chloride 111 mmol/L (96-108); Creatinine Clr Calc Pharmacy 125.4; Estimated Glomerular Filt Rate > 60; Glucose Random 92 mg/dL (60-115); Potassium 3.4 mmol/L (3.3-5.1); Sodium 142 mmol/L (135-145); Total Protein 7.9 g/dL (6.5-8.0)
[2024-09-06 23:03] LABS: Influenza A PCR NEGATIVE (Negative); Influenza B PCR NEGATIVE (Negative); Resp Syncy Virus RNA Qual PCR NEGATIVE (Negative); SARS COV2 PCR INHOUSE NEGATIVE (Negative)
--- NOTE | 2024-09-06 23:11 | ED_ITS ---
HPI - General Adult General Chief complaint: Dyspnea Stated complaint: SOB ?flu Time Seen by Provider: 09/06/24 22:17 Source: patient Limitations: no limitations History of Present Illness ED Provider: Jammie Mirza PA-C HPI narrative: 34-year-old male presents with cough and cold symptoms x3 days. Associated chest tightness, shortness of breath and dry cough. Patient states multiple family members have been sick with the flu. Patient admits to drinking alcohol overnight. Patient does not have a diagnosis of asthma or COPD, however he does smoke tobacco. No fevers at home. Related Data Previous Rx's ?Medication ?Instructions ?Recorded amoxicillin 875 mg-potassium 1 tab PO BID #14 tabs 08/28/23 clavulanate 125 mg tablet ibuprofen 600 mg tablet 600 mg PO Q6H PRN pain #30 tabs 08/28/23 ofloxacin 0.3 % ear drops 10 drp otic (ear) left DAILY 7 08/28/23 days #5 mL Allergies Allergy/AdvReac Type Severity Reaction Status Date / Time shellfish derived Allergy Itching Verified 09/06/24 21:09 Review of Systems 2 Review of Systems: Yes all other systems are reviewed and are negative Constitutional: Constitutional: Denies fatigue and Denies fever(s) Cardiovascular: Cardiovascular: Reports chest pain and Reports dyspnea Respiratory: Respiratory: Reports cough, Reports dyspnea and Denies wheezing Gastrointestinal: Gastrointestinal: Denies abdominal pain, Denies nausea and Denies vomiting Endocrine: Endocrine: Denies fatigue Allergic/Immunologic: Allergic/Immunologic: Denies wheezing PMFSH Past Medical History Attestation statement: The following information was validated with the patient. Medical History (Updated 09/06/24 @ 23:17 by JIMMY Lynn) No pertinent past medical history Social History Social History (Updated 08/28/23 @ 04:46 by Sarah Mcelroy DO) Patient Tobacco Use Status: Tobacco use Unknown Substance Use Type: Marijuana Advance Directives: No Advance Directives Information Provided: No Physical Exam ED Vital Signs: Vital Signs - 24 hr 09/06/24 21:04 Temperature 98.3 F Pulse Rate 99 Respiratory Rate 20 Blood Pressure 107/62 Pulse Oximetry 98 Oxygen Delivery Method Room Air BMI result Body Mass Index 26.6 Const Other: Alert Orientation/consciousness: patient oriented x3 Resp Effort & Inspection: normal respiratory effort Cardio Other: Normal peripheral perfusion Skin Other: Warm dry no rash Neuro General: patient oriented x3, no focal motor deficits and CN's II-XI intact bilaterally Psych Other: Cooperative, appears clinically sober Medical Decision Making Medical Decision Making MDM Narrative: 34-year-old male presents with cough and cold symptoms x3 days. Associated chest tightness, shortness of breath and dry cough. Patient states multiple family members have been sick with the flu. Patient admits to drinking alcohol overnight. Patient does not have a diagnosis of asthma or COPD, however he does smoke tobacco. No fevers at home. Problem: Intoxication, tobacco use History: Per patient I have considered the following differential diagnoses: ACS, viral syndrome, pneumonia, reactive airway , PE Plan: Screening labs including a viral panel chest x-ray and EKG were obtained. This is not ACS, the patient has no known risk factors beyond tobacco use for coronary artery disease, he is having chest discomfort in the setting of viral syndrome. He has also been drinking overnight, so it is not completely reliable. Thought about PE, however he is PERC negative. He also has no objective signs symptoms for DVT on exam. I have independently reviewed the following tests: Labs: No leukocytosis, not anemic, no electrolyte abnormality, viral panel negative, ethanol 150 the patient has been here over 2 hours, he appears clinically sober, his ethanol as well under 100 he is safe to leave. EKG: Normal sinus rhythm, rate of 92, no ischemic changes no ectopy QTC 420 Chest x-ray:IMPRESSION: 1. No acute findings. This document has been electronically signed by: Nash Samayoa MD on 09/06/2024 22:39:57 Lab Data 09/06/24 22:13 09/06/24 22:13 Labs: Lab Results 09/06/24 Range/Units 22:13 WBC 7.7 (4.8-10.8) X10*3/uL RBC 4.90 (4.60-5.80) X10*6/uL Hgb 16.1 (14.0-18.0) g/dl Hct 45.2 (42.0-52.0) % MCV 92.2 (80.0-98.0) fL MCH 32.9 (27.0-33.0) pg MCHC 35.6 (31.0-36.0) g/dl RDW 11.8 (11.0-16.0) % Plt Count 246 (160-400) X10*3/uL MPV 10.1 (9.4-12.4) fL Absolute Nucleated RBC 0.000 (0.0-0.012) X10*3/uL Nucleated RBC % (auto) 0.0 (0.0-0.2) /100WBC Sodium 142 (135-145) mmol/L Potassium 3.4 (3.3-5.1) mmol/L Chloride 111 H (96-108) mmol/L Carbon Dioxide 18 L (22-29) mmol/L Anion Gap 16 (12-20) BUN 14 (9-16) mg/dL Creatinine 0.81 (0.5-1.4) mg/dL Estim Creat Clear Calc 125.4 Estimated GFR > 60 Random Glucose 92 (60-115) mg/dL Calcium 8.8 (8.4-10.2) mg/dL Total Bilirubin 0.5 (0.0-1.0) mg/dL AST 28 (5-37) U/L ALT 21 (0-40) U/L Alkaline Phosphatase 60 (39-117) U/L Total Protein 7.9 (6.5-8.0) g/dL Albumin 4.4 (3.5-5.0) g/dL Ethyl Alcohol 150 mg/dL Influenza Type A (PCR) NEGATIVE (Negative) Influenza Type B (PCR) NEGATIVE (Negative) RSV RNA Qual (PCR) NEGATIVE (Negative) SARS-CoV-2 RNA (RT-PCR) NEGATIVE (Negative) Discharge Plan Discharge Clinical Impression: Acute viral syndrome Patient Disposition: Home, Self-Care Instructions: Viral Syndrome (ED) Additional Instructions: All of your screening labs including an EKG and a chest x-ray were completely normal. You were screened for influenza a and B RSV and COVID, the viral panel was negative. You have yet another respiratory virus likely causing your symptoms, there are numerous circulating within the community. Follow up with your primary care provider as needed. Prescriptions: No Action ibuprofen 600 mg tablet 600 mg PO Q6H PRN (Reason: pain) Qty: 30 0RF amoxicillin-pot clavulanate 875-125 mg tablet 1 tab PO BID Qty: 14 0RF ofloxacin 0.3 % drops 10 drp otic (ear) left DAILY 7 Days Qty: 5 0RF Print Language: Croatian
[2024-09-07] VITALS: BP 120/77; PULSE 80; RESP 16; TEMP 36.8; O2SAT 97
[2024-09-07 00:54] VITALS: BP 120/77; PULSE 80; RESP 16; TEMP 36.8; O2SAT 97
== END 2024-09-07 00:55 | disposition home or self-care (01) ==
PROVIDERS: Emergency Provider Emergency Medicine
DX: B34.9 Viral infection, unspecified (principal); R06.02 Shortness of breath; R07.89 Other chest pain; R05.9 Cough, unspecified; Z03.818 Encounter for observation for suspected exposure to other biological agents ruled out; Z51.81 Encounter for therapeutic drug level monitoring; Z79.899 Other long term (current) drug therapy
CPT/HCPCS: 0241U; 36415; 71046; 80053; 80307; 85027; 93005; 99284

== ENCOUNTER → 2024-09-06 21:23 | Outpatient (BNV) | payer SELFPAY | PROVIDERS: Emergency Provider Emergency Medicine; Visit Provider Internal Medicine Cardiovascular Disease | DX: R07.9 Chest pain, unspecified (principal); R94.31 Abnormal electrocardiogram [ECG] [EKG] | CPT/HCPCS: 93010 ==

== ENCOUNTER → 2024-09-06 22:00 | Outpatient (BNV) | payer SELFPAY | PROVIDERS: Emergency Provider Emergency Medicine; Visit Provider Student in an Organized Health Care Education/Training Program | DX: R06.02 Shortness of breath (principal) | CPT/HCPCS: 71046 ==